=== PATIENT | male | born 1960 | race Caucasian/White ===

== ENCOUNTER 2023-07-24 10:21 | Inpatient (IN) | payer MEDICARE, OTHER ==
[2023-07-24] VITALS (10 sets, daily range): BP systolic 149–172; BP diastolic 93–124
[~2023-07-24] VITALS: Ht 185.4 cm; Wt 68.7 kg
[2023-07-24 10:44] LABS: BASOPHILS ABSOLUTE AUTO 0.05 K/mm3 (0.00-0.23); BASOPHILS PERCENT AUTO 1 % (0-2); EOSINOPHILS ABSOLUTE AUTO 0.09 K/mm3 (0.00-0.68); EOSINOPHILS PERCENT AUTO 3 % (0-6); Hematocrit 36.4 % (37.0-53.0); Hemoglobin 12.2 g/dL (13.5-17.5); IMMATURE GRAN ABSOLUTE AUTO 0.01 K/mm3 (0.00-0.10); IMMATURE GRAN PERCENT AUTO 0 % (0-1); LYMPHOCYTES ABSOLUTE AUTO 0.54 K/mm3 (0.84-5.20); LYMPHOCYTES PERCENT AUTO 15 % (21-46); MONOCYTES ABSOLUTE AUTO 0.55 K/mm3 (0.16-1.47); MONOCYTES PERCENT AUTO 16 % (4-13); Mean Corpuscular HGB 33.2 pg (26.0-34.0); Mean Corpuscular HGB Conc 33.5 g/dL (31.5-36.5); Mean Corpuscular Volume 99 fL (80-100); Mean Platelet Volume 9.6 fL (9.1-12.4); NEUTROPHILS ABSOLUTE AUTO 2.26 K/mm3 (1.96-9.15); NEUTROPHILS PERCENT AUTO 65 % (41-73); Platelet Count 108 K/mm3 (150-400); RDW Coefficient Variation 14.5 % (11.7-14.2); Red Blood Cell Count 3.67 M/mm3 (4.30-5.90)
[2023-07-24 11:07] LABS: Bilirubin, Total 0.7 mg/dL (0.1-1.0); Bun/Creatinine Ratio 17.4 (12.0-20.0); Calcium, Blood 8.9 mg/dL (8.5-10.1); Creatinine, Blood 0.63 mg/dL (0.60-1.20); Potassium, Blood 3.9 mmol/L (3.5-5.5)
--- NOTE | 2023-07-24 16:30 | NUR ---
INITIAL ASSESSMENT PATIENT ARRIVED TO UNIT AT 1608. PATIENT SLEEPING SOUNDLY. PATIENT AROUSES BRIEFLY TO NURSING CARE OR NOXIOUS STIMULI; PATIENT SLURS WORDS THAT ARE INCOMPREHENSIBLE AND THEN GOES RIGHT BACK TO SLEEP. CIWA SCORE 13. PATIENT GIVEN TOTAL OF 8 MG IV ATIVAN IN HERE. PATIENT AFEBRILE. NO SIGNS OF PAIN NOTED. PATIENT REMAINS SATTING 90% AND GREATER ON RA. LUNGS CLEAR T/O. PATIENT IN SB, HR 40S TO 50S. SBP 160S TO 170S. PATIENT NPO. APPEARS WNL THUS FAR. SCATTERED BRUISES NOTED T/O SKIN. SKIN TEAR NOTED TO R FA. SKIN DARK AND PEELING TO SOLE OF BILAT FEET; IT LOOKS IF PATIENT WALKED ON HOT SURFACE AND IT IS HEALING. NS INFUSING AT 100 MLS/ HOUR. BED ALARM ON. BED LOW AND CALL LIGHT IN REACH.
--- NOTE | 2023-07-24 19:39 | NUR ---
UPDATE NOTIFIED HOSPITALIST ABOUT PT'S ELEVATED BP W/ SYSTOLICS >170'S/DIASTOLIC >100-110'S. ORDERS FOR HYDRALAZINE 10MG Q4P SYSTOLIC >180.
--- NOTE | 2023-07-24 20:15 | NUR ---
ASSUMED CARE PT IS SOMNULENT; AROUSES TO VERBAL STIMULI; AND IS ORIENTED TO PLACE AND SELF. PT UNDERSTANDS HE'S IN THE HOSPITAL FOR ETOH WITHDRAWAL. MEDICATING WITHDRAWAL SYMPTOMS W/ ATIVAN PER ORDER/CIWA. PT ATTEMPTS TO GET OOB INTERMITTENTLY TO FIND HIS DOG OR TO GO "WALK AROUND"; REORIENTS AFTER EDUCATING PT ON IMPORTANCE OF STAYING IN BED.
[2023-07-25] VITALS (36 sets, daily range): BP systolic 85–162; BP diastolic 62–112
[2023-07-25 03:37] LABS: Hematocrit 40.8 % (37.0-53.0); Hemoglobin 13.6 g/dL (13.5-17.5); Mean Corpuscular HGB 32.5 pg (26.0-34.0); Mean Corpuscular HGB Conc 33.3 g/dL (31.5-36.5); Mean Corpuscular Volume 98 fL (80-100); Mean Platelet Volume 10.1 fL (9.1-12.4); Platelet Count 106 K/mm3 (150-400); RDW Standard Deviation 50.3 fL (35.1-46.3); Red Blood Cell Count 4.18 M/mm3 (4.30-5.90); White Blood Cell Count 4.19 K/mm3 (4.00-11.30)
[2023-07-25 03:58] LABS: Albumin, Blood 3.1 g/dL (3.4-5.0); Albumin/Globulin Ratio 0.9 (0.8-1.8); Bilirubin, Total 0.9 mg/dL (0.1-1.0); Bun/Creatinine Ratio 11.5 (12.0-20.0); Calcium, Blood 8.6 mg/dL (8.5-10.1); Creatinine, Blood 0.52 mg/dL (0.60-1.20); Globulin, Blood 3.3 g/dL (2.2-4.0); Total Protein, Blood 6.4 g/dL (6.4-8.2)
--- NOTE | 2023-07-25 05:34 | NUR ---
SHIFT SUMMARY PT RESTING QUIETLY. VSS. PT'S BLOOD PRESSURE REMAINS ELEVATED; CONTINUES TO REMAIN UNDER PARAMETERS SET BY HOSPITALIST FOR PRN BP MEDICATION. CIWA <8 AT TIME OF THIS NOTE. NO ACUTE EVENTS OVERNIGHT.
--- NOTE | 2023-07-25 10:47 | NUR ---
ASSUMED CARE REPORT FROM PRIYA LEON AT 0700. PT SLEEPING IN BED FOR MOST OF MORNING. WAKES c VERBAL STIMULI. SLURRED SOFT SPEECH. ORIENTED TO SELF, TOWN AND KNOWS HE IS TREATMENT FOR ETOH. FOLLOWS SIMPLE COMMANDS. CIWA 12, MEDICATED c LIBRIUM. LUNGS CLEAR. SR, RATE 80'S. BP STABLE. WILL CONTINUE TO MONITOR.
--- NOTE | 2023-07-25 17:01 | NUR ---
SHIFT SUMMARY NO ACUTE CHANGES THIS SHIFT. CIWA 9-15. PT TREMOROUS, ORIENTED TO SELF, TOWN AND CIRCUMSTANCE, FOLLOWS DIRECTIONS, OCCASIONAL HALLUCINATIONS. MEDICATED c LIBRIUM ORDERED c IMPROVEMENT. PT UP TO CHAIR FOR HALF OF SHIFT. ASSISTED c MECH SOFT MEALS, TOLERATED WELL. TWO PERSON ASSIST TO CHAIR. INCONTINENT OF URINE, ATTENDS IN PLACE. WILL CONTINUE TO MONITOR UNTIL REPORT TO ONCOMING NURSE.
[2023-07-26] VITALS (24 sets, daily range): BP systolic 99–153; BP diastolic 77–134
[2023-07-26 04:11] LABS: Albumin, Blood 3.3 g/dL (3.4-5.0); Albumin/Globulin Ratio 0.9 (0.8-1.8); Bun/Creatinine Ratio 17.5 (12.0-20.0); Calcium, Blood 9.1 mg/dL (8.5-10.1); Creatinine, Blood 0.57 mg/dL (0.60-1.20); Globulin, Blood 3.5 g/dL (2.2-4.0); Potassium, Blood 4.2 mmol/L (3.5-5.5); Total Protein, Blood 6.8 g/dL (6.4-8.2)
[2023-07-26 04:12] LABS: BASOPHILS ABSOLUTE AUTO 0.04 K/mm3 (0.00-0.23); BASOPHILS PERCENT AUTO 1 % (0-2); EOSINOPHILS ABSOLUTE AUTO 0.04 K/mm3 (0.00-0.68); EOSINOPHILS PERCENT AUTO 1 % (0-6); Hematocrit 40.7 % (37.0-53.0); Hemoglobin 13.9 g/dL (13.5-17.5); IMMATURE GRAN ABSOLUTE AUTO 0.02 K/mm3 (0.00-0.10); IMMATURE GRAN PERCENT AUTO 0 % (0-1); LYMPHOCYTES ABSOLUTE AUTO 0.56 K/mm3 (0.84-5.20); LYMPHOCYTES PERCENT AUTO 9 % (21-46); MONOCYTES ABSOLUTE AUTO 0.97 K/mm3 (0.16-1.47); MONOCYTES PERCENT AUTO 16 % (4-13); Mean Corpuscular HGB 32.4 pg (26.0-34.0); Mean Corpuscular HGB Conc 34.2 g/dL (31.5-36.5); Mean Corpuscular Volume 95 fL (80-100); Mean Platelet Volume 9.6 fL (9.1-12.4); NEUTROPHILS ABSOLUTE AUTO 4.41 K/mm3 (1.96-9.15); NEUTROPHILS PERCENT AUTO 73 % (41-73); Platelet Count 135 K/mm3 (150-400); RDW Coefficient Variation 13.7 % (11.7-14.2); RDW Standard Deviation 47.7 fL (35.1-46.3); Red Blood Cell Count 4.29 M/mm3 (4.30-5.90); White Blood Cell Count 6.04 K/mm3 (4.00-11.30)
--- NOTE | 2023-07-26 06:11 | NUR ---
END OF SHIFT SUMMARY PT A/O X2 WITH SOME CONFUSION THROUGHOUT THE NIGHT WHEN AWAKE. ALL VITALS STABLE THIS SHIFT. CIWA'S DOCUMENTED AND TREATED PER EMAR DIRECTIONS. NO BM THIS SHIFT. PLEASE SEE FULL ASSESSMENT FOR MORE IN DEPTH INFORMATION IF NEEDED. WILL CONTINUE TO MONITOR UNTIL REPORT GIVEN TO DAY RN.
--- NOTE | 2023-07-26 17:42 | NUR ---
SHIFT SUMMARY NO ACUTE CHANGES THIS SHIFT. PT REMAINS DROWSEY AND RESTING QUIETLY MOST OF THIS SHIFT. WHEN AWAKE PT CONTINUES WITH CONFUSED AND SLURRED SPEECH. PT WITH BOTH AUDITORY AND VISUAL HALLUCINATIONS AND TREMORS TO EXTREMITIES. PT ABLE TO TAKE SIPS OF WATER WITH MEDS. NS INFUSING AT 100 ML/HR. PT MED WITH ATIVAN AND LIBRIUM PER EMAR. PT WITH ATTENDS IN PLACE AND INCONTINENT VOIDS THIS SHIFT. NO FAMILY AT BEDSIDE. VITAL SIGNS STABLE. PT ON ROOM AIR. WILL CONTINUE TO MONITOR AND REPORT OFF TO ONCOMING RN.
--- NOTE | 2023-07-26 19:24 | NUR ---
ASSUMED CARE OF PT AT 1900 PT SLEEPING DURING BEDSIDE SHIFT REPORT. VITALS WNL AT THIS TIME. NS @ 100 MLS/HR. SEE FULL ASSESSMENT FOR FURTHER INFORMATION.
[2023-07-27] VITALS (11 sets, daily range): BP systolic 138–169; BP diastolic 83–122
[2023-07-27 03:32] LABS: BASOPHILS ABSOLUTE AUTO 0.03 K/mm3 (0.00-0.23); BASOPHILS PERCENT AUTO 1 % (0-2); EOSINOPHILS ABSOLUTE AUTO 0.03 K/mm3 (0.00-0.68); EOSINOPHILS PERCENT AUTO 1 % (0-6); Hematocrit 39.1 % (37.0-53.0); Hemoglobin 13.7 g/dL (13.5-17.5); IMMATURE GRAN ABSOLUTE AUTO 0.01 K/mm3 (0.00-0.10); IMMATURE GRAN PERCENT AUTO 0 % (0-1); LYMPHOCYTES ABSOLUTE AUTO 0.72 K/mm3 (0.84-5.20); LYMPHOCYTES PERCENT AUTO 13 % (21-46); MONOCYTES ABSOLUTE AUTO 1.22 K/mm3 (0.16-1.47); MONOCYTES PERCENT AUTO 22 % (4-13); Mean Corpuscular Volume 94 fL (80-100); Mean Platelet Volume 9.8 fL (9.1-12.4); NEUTROPHILS ABSOLUTE AUTO 3.64 K/mm3 (1.96-9.15); NEUTROPHILS PERCENT AUTO 65 % (41-73); Platelet Count 139 K/mm3 (150-400); RDW Coefficient Variation 13.5 % (11.7-14.2); RDW Standard Deviation 46.6 fL (35.1-46.3); Red Blood Cell Count 4.15 M/mm3 (4.30-5.90); White Blood Cell Count 5.65 K/mm3 (4.00-11.30)
[2023-07-27 03:49] LABS: Albumin, Blood 2.8 g/dL (3.4-5.0); Albumin/Globulin Ratio 0.8 (0.8-1.8); Bun/Creatinine Ratio 17.6 (12.0-20.0); Calcium, Blood 8.5 mg/dL (8.5-10.1); Creatinine, Blood 0.57 mg/dL (0.60-1.20); Globulin, Blood 3.4 g/dL (2.2-4.0); Potassium, Blood 3.8 mmol/L (3.5-5.5); Total Protein, Blood 6.2 g/dL (6.4-8.2)
--- NOTE | 2023-07-27 06:02 | NUR ---
END OF SHIFT SUMMARY PT DOES NOT WAKE EASILY. VERY CONFUSED AT TIMES. HEAVY SLURRING WHEN TALKING. FOLLOWS COMMANDS. SWALLOWS PILLS WHOLE WITHOUT DIFFICULTY. VITALS STABLE. NO URINE OF BM THIS SHIFT. WILL CONTINUE TO MONITOR UNTIL REPORT GIVEN TO DAY SHIFT RN.
--- NOTE | 2023-07-27 16:47 | NUR ---
SHIFT SUMMARY NO ACUTE CHANGES THIS SHIFT. PT IS MORE ALERT THIS AFTERNOON AND ABLE TO ANSWER QUESTIONS APPROPRIATELY. PT WITH PERIODS OF CONFUSION AND NEEDS REORIENTATION. PT IS PLEASANT AND FOLLOWS DIRECTIONS APPROPRIATELY. VITAL SIGNS HAVE REMAINED STABLE. PT ABLE TO EAT MEALS WITH ASSISTANCE. PT WITH ATTENDS IN PLACE, PT WITH INCONTINENT VOIDS THIS SHIFT. PHYSICAL THERAPY WORKED WITH PT THIS MORNING. PT UP TO RECLINER CHAIR THIS AFTERNOON WITH 2 PERSON ASSIST AND WALKER. PT ASKING ABOUT PHONE AND OTHER PERSONAL BELONGINGS. [facility] CALLED AND VERIFIED THAT PT BELONGINGS REMAIN AT [facility] AT THIS TIME. PT TO BE TRANSFERED TO [facility]. WILL REPORT OFF TO RN ASSUMING CARE.
--- NOTE | 2023-07-27 18:47 | NUR ---
SHIFT SUMMARY ASSUMED CARE OF PT AT 1730. PT HAD NO C/O OF PAIN OR SOB UPON ARRIVAL. PT ASSISTED WITH DINNER. PT VERY WEAK AND HAS VISABLE TREMORS WHILE AWAKE. PT PLEASANT AND A&OX3. MEPALEX DRESSING ON RIGHT FOREARM CHANGED. PT SLEEPING AFTER DINNER. EVEN AND UNLABORED RESPIRATIONS NOTED. BED IN LOWEST POSITION AND CALL LIGHT IN REACH.
[2023-07-28 00:08] VITALS: BP 159/101
[2023-07-28 04:43] VITALS: BP 156/91
[2023-07-28 04:51] LABS: BASOPHILS ABSOLUTE AUTO 0.04 K/mm3 (0.00-0.23); BASOPHILS PERCENT AUTO 1 % (0-2); EOSINOPHILS ABSOLUTE AUTO 0.14 K/mm3 (0.00-0.68); EOSINOPHILS PERCENT AUTO 3 % (0-6); Hematocrit 35.4 % (37.0-53.0); Hemoglobin 12.3 g/dL (13.5-17.5); IMMATURE GRAN ABSOLUTE AUTO 0.02 K/mm3 (0.00-0.10); IMMATURE GRAN PERCENT AUTO 0 % (0-1); LYMPHOCYTES ABSOLUTE AUTO 0.73 K/mm3 (0.84-5.20); LYMPHOCYTES PERCENT AUTO 15 % (21-46); MONOCYTES ABSOLUTE AUTO 1.09 K/mm3 (0.16-1.47); MONOCYTES PERCENT AUTO 23 % (4-13); Mean Corpuscular HGB 32.6 pg (26.0-34.0); Mean Corpuscular HGB Conc 34.7 g/dL (31.5-36.5); Mean Corpuscular Volume 94 fL (80-100); Mean Platelet Volume 9.1 fL (9.1-12.4); NEUTROPHILS PERCENT AUTO 58 % (41-73); Platelet Count 154 K/mm3 (150-400); RDW Coefficient Variation 13.2 % (11.7-14.2); Red Blood Cell Count 3.77 M/mm3 (4.30-5.90); White Blood Cell Count 4.82 K/mm3 (4.00-11.30)
--- NOTE | 2023-07-28 05:02 | NUR ---
MARCIAL IS SOMULENT AND CONFUSED, HE RESPONDS TO VERBAL STIMULUS AND CAN ANSWER SOME QUESTIONS COHERENTLY, ORIENTED TO SELF, AND PLACE. HE CONTINUES TO SCORE 8-10 ON CIWA AND IS HAS BEEN MEDICATED PER EMAR WITH LIBRIUM AND ATIVAN. THE PATIENT IS INCONTINENT, AND WILL TRY TO AMBULATE IF WET. HE HAD A FALL DURING THE SHIFT AROUND 2300. WHILE ATTEMTING TO AMBULATE THE PATIENT SLID OUT OF THE BED TO THE GROUND WITHOUT INJURY, THE DOCTOR WAS NOTIFIED, HE WAS REASSESSED AND GIVEN ATIVAN, FALL PRECAUTIONS ARE IN PLACE, BED ALARM IS TURNED ON, AND THE BED IS IN ITS LOWEST POSTION. WILL CONTINUE TO MONITOR FOR SIGNS OF AGITATION. MARCIAL IS COOPERATIVE WITH CARE.
[2023-07-28 05:15] LABS: Albumin, Blood 2.5 g/dL (3.4-5.0); Albumin/Globulin Ratio 0.8 (0.8-1.8); Bilirubin, Total 0.7 mg/dL (0.1-1.0); Bun/Creatinine Ratio 16.6 (12.0-20.0); Calcium, Blood 8.5 mg/dL (8.5-10.1); Creatinine, Blood 0.48 mg/dL (0.60-1.20); Globulin, Blood 3.1 g/dL (2.2-4.0); Potassium, Blood 3.6 mmol/L (3.5-5.5); Total Protein, Blood 5.6 g/dL (6.4-8.2)
--- NOTE | 2023-07-28 05:19 | NUR ---
THIS TECHNICAL INSTRUCTOR COURSE DEVELOPER HAS REVEIWED AND AGREES WITH ALL NOTES AND ASSESSMENTS BY EDWARD FREEDMAN.
[2023-07-28 08:21] VITALS: BP 154/96
[2023-07-28 15:24] VITALS: BP 176/105
[2023-07-28 16:11] VITALS: BP 156/97
--- NOTE | 2023-07-28 18:12 | NUR ---
SHIFT SUMMARY PT A&OX3 AND COOPERATIVE OF CARE. PT HAD PLEASANT EFFECT T/O DAY. MILD TREMORS STILL PRESENT. PT UP TO BSC IN MORNING WITH 2 ASSIST BUT PT WAS VERY WEAK AND STRUGGLED WITH MOVING LEGS. PT SLEPT T/O MOST OF DAY. IN AFTERNOON PT APPEARED MORE RESTLESS AND VERBALIZED FEELING ANXIOUS MEDICATED PER EMAR WITH GOOD EFFECT. BP ELEVATED IN AFTERNOON. DR NOTIFIED, LIBRIUM ADMINISTERED AND BP CAME DOWN WHEN RECHECKED. BED IN LOWEST POSITION AND CALL LIGHT IN REACH. BED ALARM ON.
[2023-07-28 19:22] VITALS: BP 153/92
[2023-07-29 02:57] VITALS: BP 162/105
--- NOTE | 2023-07-29 04:33 | NUR ---
MARCIAL HAS IMPROVED ALERTNESS AND MENTATION FROM PREVIOUS NIGHT, HE IS ABLE TO SPEAK IN MORE COMPLETE SENTENCES, USES HIS CALL LIGHT MORE APPROPRIATELY AND HAS LESS CONFUSION AND AGITATION. HE IS CALM AND COOPERATIVE WITH CARE, ALERT AND ORIENTED TO SELF, AND PLACE. PATIENT CONTINUES TO HAVE MILD TREMORS, AND INTERMITTENT CONFUSION, HE HAS CONCERNS REGARDING HIS BELONGINGS AND HIS DOG. LIBRIUM ADMINISTERED IN RESPONSE TO MILD INCREASE IN TREMORS AND CONFUSION DURING THE NIGHT. HE IS CURRENTLY RESTING WITH BED IN LOWEST POSITION, BED ALARM SET, AND CALL LIGHT IN REACH.
[2023-07-29 05:08] LABS: Hematocrit 35.9 % (37.0-53.0); Hemoglobin 12.5 g/dL (13.5-17.5)
--- NOTE | 2023-07-29 05:16 | NUR ---
THIS SANDER AND POLISHER HAS REVIEWED AND AGREES WITH ALL NOTES AND ASSESSEMENTS BY EDWARD FREEDMAN.
[2023-07-29 07:46] VITALS: BP 168/97
[2023-07-29 15:49] VITALS: BP 157/105
--- NOTE | 2023-07-29 17:43 | NUR ---
SHIFT SUMMARY: PT ORIENTED TO SELF AND LOCATION. PT PLEASANT AND COOPERATIVE WITH CARE. PT CONFUSED THIS SHIFT HAVING VISUAL AND AUDITORY HALLUCINATIONS WELL TREMORS, HEADACHES, AND SWEATS. CIWA PERFORMED TWICE FIRST SCORE OF 11 AND SECOND SCORE OF 16. 25 LIBRIUM GIVEN THIS AM AND 50 THIS AFTERNOON. 2MG ATIVAN GIVEN IV THIS AFTERNOON. ATTEMPTED 2P ASSIST TO BSC. PT EXTREMELY WEAK. PT INCONTINENT WITH OCCASIONAL URINAL USE. IV INFUSING NS @ 100/HR. PT ANXIOUS DUE TO NEED FOR BELONGINGS AT [facility]. PHYSICAL THERAPY WORKED WITH PT BUT REMAINS VERY WEAK. PT MOVING TO MEDICAL ROOM 347 AFTER BEING CLEANED. ORDER FOR OT EVAL IN PLACE. BED ALARM ON. BED IN LOWEST POSITION. CALL LIGHT IN REACH. WILL CONTINUE TO MONITOR.
[2023-07-29 19:11] VITALS: BP 150/102
--- NOTE | 2023-07-30 04:00 | NUR ---
SHIFT SUMMARY. SHIFT HAS BEEN MOSTLY UNREMARKABLE. PT AOX3, PLEASANT, COOPERATIVE WITH ARE. MILDLY ANXIOUS BUT RECEPTIVE TO REDIRECTION. BEDREST THUS FAR THIS SHIFT. FLUIDS RUNNING THROUGHOUT SHIFT. NO COMPLAINTS OF PAIN OUTSIDE OF VERY MILD HEADACHE. CIWAs COMPLETED PER PROTOCOL, PT REMAINS STABLE. WITHDRAWAL MEDICATIONS ADMINISTERED NEEDED. INCONTINENT, 1 PERSON BED CHANGE. CAMERA IN PLACE FOR REMOTE MONITORING PT CAN BE IMPULSIVE AT TIMES. HAS SLEPT COMFORTABLY THROUGH MOST OF SHIFT. HAS NOT USED CALL LIGHT THUS FAR DESPITE EDUCATION ON ITS USE. BED LOCKED IN LOWEST POSITION. CALL LIGHT LEFT WITHIN REACH.
[2023-07-30 04:50] VITALS: BP 145/96
[2023-07-30 05:30] LABS: Hematocrit 37.9 % (37.0-53.0); Hemoglobin 13.4 g/dL (13.5-17.5)
[2023-07-30 05:57] LABS: Albumin, Blood 2.8 g/dL (3.4-5.0); Albumin/Globulin Ratio 0.8 (0.8-1.8); Bilirubin, Total 0.6 mg/dL (0.1-1.0); Bun/Creatinine Ratio 6.2 (12.0-20.0); Calcium, Blood 8.8 mg/dL (8.5-10.1); Creatinine, Blood 0.48 mg/dL (0.60-1.20); Globulin, Blood 3.6 g/dL (2.2-4.0); Potassium, Blood 3.6 mmol/L (3.5-5.5); Total Protein, Blood 6.4 g/dL (6.4-8.2)
[2023-07-30 07:33] VITALS: BP 138/91
--- NOTE | 2023-07-30 16:54 | NUR ---
SHIFT SUMMARY; PATIENT NOTED TO HAVE RIGHT FACIAL DROOP THIS AM. SHOWS LEFT ARM WEAKNESS AND HAS TROUBLE LOOKING TO THE LEFT WITH HIS LEFT EYE. SPEECH EVAL DONE BY MELISSA THERAPIST AND PATIENT IS CHANGED TO SWALLOW PRECAUTIONS AND PILLS IN APPLESAUCE. PATIENT HAD BED BATH TODAY AND THIS RN DID CHECK FOR ANY SKIN ISSUES. ONLY AREA OF CONCERN WAS RENU AREA WHICH APPEARED RED AND ANGRY. HE HAD BRUISES TO HIS RIGHT SIDE AND THEY APPEARED TO BE IN VARIOUS STAGES OF HEALING. PATIENT ANSWERS QUESTIONS ABOUT HOME LIFE AND HIS HISTORY. 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 HE SAYS HE IS CURRENTLY HOMELESS AND ONLY BELONGINGS HE HAS ARE AT [facility] IN BAGS. HE APPEARS VERY CONCERNED ABOUT THOSE ITEMS. HE DOES NOT USE THE CALL LIGHT TO CALL FOR ASSIST IN USING URINAL AND IS A FEEDER FOR ALL MEALS. CASE MANAGMENT IS WORKING WITH PATIENT ON POSSIBLE SNF PLACEMENT.
[2023-07-30 20:48] VITALS: BP 135/84
[2023-07-31 02:33] VITALS: BP 136/93
--- NOTE | 2023-07-31 04:27 | NUR ---
SHIFT SUMMARY. SHIFT HAS BEEN LARGELY UNREMARKABLE. PT IS AOX3-4, FORGETFUL TO DATE BUT EASILY AND QUICKLY REORIENTED. PLEASANT AND COOPERATIVE WITH CARE. SOMNOLENT THROUGHOUT SHIFT BUT EASILY AROUSABLE. CONDOM CATH IN PLACE THROUGHOUT SHIFT WHICH IS FUNCTIONING WELL. FLUIDS INFUSING CONTINUOUSLY. NO COMPLAINTS OF PAIN THIS SHIFT. REMOTE MONITORING CAMERA REMAINS IN PLACE WITH NO ALARMS THIS SHIFT, PT HAS NOT BEEN IMPULSIVE. CIWAs COMPLETED PER PROTOCOL. BED LOCKED IN LOWEST POSITION. CALL LIGHT LEFT WITHIN REACH.
[2023-07-31 07:51] VITALS: BP 136/96
[2023-07-31 15:33] VITALS: BP 102/74
--- NOTE | 2023-07-31 17:06 | NUR ---
SHIFT SUMMARY PATIENT UP TO CHAIR MULTIPLE TIMES TODAY. PATIENT INTERACTIVE BUT CONFUSED. NEEDING 2 PERSON, WALKER AND GAIT BELT FOR TRANSFERS. PATIENT FIXATED ON WANTING HIS BELONGINGS OVER AT [facility]. [facility] CONTACTED AND PATIENT ABLE TO HEAR THAT HIS BELONGINGS ARE SECURE AT [facility]. PATIENT ABLE TO EAT IF ASSISTED. COUGHING NOTED WHEN PATIENT LAYS DOWN. PATIENT HAS L SIDED WEAKNESS THAT WAS PRESENT PRIOR TO ADMISSION BUT NOT SEVERE. PATIENT STATES HE WAS ABLE TO WALK WITH A WALKER PRIOR TO ADMISSION.
[2023-07-31 20:21] VITALS: BP 140/87
[2023-08-01 05:44] VITALS: BP 163/88
[2023-08-01 07:55] VITALS: BP 134/87
[2023-08-01 14:32] LABS: SARS-Cov-2 (COVID-19) PCR, MMC NEGATIVE (NEGATIVE)
[2023-08-01 14:56] VITALS: BP 121/87
--- NOTE | 2023-08-01 18:31 | NUR ---
SHIFT SUMMARY PATIENT CONTINUES TO BE CONFUSED AND NEEDING TO BE REORIENTED FREQUENTLY. PATIENT ATTEMPTING TO GET OUT OF BED OR CHAIR FREQUENTLY. SAFETY MEASURES IN PLACE TO NOTIFY STAFF. PATIENT CONTINUES TO BE VERY WEAK, PATIENT WORKING WITH THERAPY. PATIENT NEEDING ASSISTANCE WITH FEEDING. PATIENT FIXATED ON PLAN AND HIS BELONGINGS. IV CHANGED BECAUSE PREVIOUS IV LEAKING
[2023-08-01 20:08] VITALS: BP 108/69
--- NOTE | 2023-08-02 07:12 | NUR ---
OVERALL, MARCIAL WAS QUIET, FORGETFUL, BUT EASILY REORIENTED. PE IS STILL VERY WEAK, AND DOES NOT APPEAR TO REMEMBER TO CALL FOR ASSISTANCE TO GET OUT OF CHAIR, BED OR TOILET. HE NEEDS BRIEF, CONCISE DIRECTIONS AND A ONE TO TWO ASSIST WITH GAIT BELT AND FWW. THIS MORNING, HE WOKE AND WAS "TALKING" TO SOMEONE ABOUT HIS HAVING TO GO TO [facility] IN THE MORNING. HE COULD NOT BE CONSOLED FOR APPROXIMATELY 15 MINUTES. AND THEN WAS STILL SHAKEN. 25MG LIBRIUM GIVEN FOR THE ANXIETY AND HALLUCINATIONS
[2023-08-02 07:28] VITALS: BP 135/81
[2023-08-02 15:26] VITALS: BP 139/87
--- NOTE | 2023-08-02 17:09 | NUR ---
SHIFT SUMMARY PATIENT CONTINUES TO BE RESTLESS AT TIMES. PATIENT CONFUSED AND EASILY ANXIOUS. PATIENT REDIRECTABLE AND COOPERATIVE WITH CARE. PATIENT TEARFUL AT TIMES AND WORRIES ABOUT HIS BELONGINGS. PATIENT SLOW TO RESPOND TO QUESTIONS AND PERIODICALLY HAVING DIFFICULTY FINDING THE RIGHT WORD. PATIENT CONTINUES TO HAVE WEAKNESS L>R. PATIENT CONTINUES TO NEED ASSISTANCE WITH WALKER, GAIT BELT, AND 2 PERSON ASSIST FOR TRANSFERS AND AMBULATION.
[2023-08-02 20:01] VITALS: BP 158/86
[2023-08-03 04:58] VITALS: BP 142/82
--- NOTE | 2023-08-03 06:08 | NUR ---
MARCIAL HAD VERY LITTLE SLEEP LAST NIGHT. HE WAS AWAKE SEVERAL TIMES ATTEMPTING TO GET OOB FOR REASONS HE COULD NOT EXPLAIN. THREE VERY LARGE INCONTINENT VOIDS OVERNIGHT. NO OTHER CHANGES NOTED. VERY FLAT AFFECT, SLOW SPEECH
[2023-08-03 07:14] VITALS: BP 129/85
--- NOTE | 2023-08-03 08:00 | NUR ---
pt attempting to get oob, states he's worried they are gonna kick him out, reassured him hes safe, and not going to be kicked out, a/o to self, knows he's in hosp, is flat, follows commands, lungs are clear, dim in bases, on r/a, has an occ cough, hrr, no edema noted, ppp faint, cap refill <3sec, vs stable, afebrile, piv is clear and patent, infusing ns as ordered, btx4, abd flat soft nontender, incont of urine, briefs in place, skin c/w/d, maew, stiff, weak, two person assist, christie, call light in reach.
[2023-08-03 15:24] VITALS: BP 116/75
--- NOTE | 2023-08-03 18:12 | NUR ---
pt has attempted to get oob on his own several times, is redirectable, incont, no acute changes this shift. call light in reach.
[2023-08-03 19:47] VITALS: BP 137/97
[2023-08-04 07:55] VITALS: BP 135/89
[2023-08-04 12:56] VITALS: BP 128/80
[2023-08-04 15:24] VITALS: BP 143/88
--- NOTE | 2023-08-04 18:08 | NUR ---
PT PLEASANT TODAY. CONTIUES TO SQUIRM IN BED. IF / WHEN WETS SELF WILL PULL ATTENDS OFF. BUT HE DOES NOT NOTIFY ANYONE. DID CALL ONCE WHEN NEEDED TO UE URINAL. IS CONFUSED, BUT REORIENTS EASILY. ALERT TO SELF, , AGE, FROM [place]. NO OTER NEW CONCERNS NOTED.
[2023-08-04 20:15] VITALS: BP 144/97
[2023-08-05 04:10] VITALS: BP 159/95
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
[2023-08-05 07:20] VITALS: BP 141/88
--- NOTE | 2023-08-05 13:36 | NUR ---
Spiritual care visit conducted. Patient is lying in bed and alert. He immediately tells me that he wants the phone number for his couselor at [facility]. His RN comes in at this time and he asks her and she tells him that she will work on finding the information for him. After this the patient is fixated on this number and can not seem to focus on anything else. He will give me a couple of minutes at a time of focused attention and then he is back to being frustrated that he does not have this information when he wants it. I explain about the other patients and their needs. We talk briefly about his desire to and that he can't go on living without his who left him a couple of weeks ago. He admits to being an alcoholic and but that she left because he would not release any money to her. He does not allow for further discussion on the weightier issues of his SI or his hopelessness. Patient increases his level of intensity over his frustration about the phone number to the point that I must allow him his space to work it out. The conversation ceased to be meaningful but patient states that he would like me to come back again. I state that I will continue to remain available to him and his family.
--- NOTE | 2023-08-05 16:31 | NUR ---
SHIFT SUMMARY Pt remains alert to self this shift. Generalized weakness noted with PT eval. Speech garbled at times. 1:1 feed mech soft diet. Incont of urine, did void per urinal this shift. Spoke with Sujatha who states [facility] will bring pt belongings tomorrow. Contact at [employer] is Dion [phone].
[2023-08-05 16:39] VITALS: BP 121/83
[2023-08-05 19:44] VITALS: BP 129/85
[2023-08-06 03:35] VITALS: BP 97/68
--- NOTE | 2023-08-06 03:40 | NUR ---
SHIFT SUMMARY. TOOK OVER CARE OF PATIENT HALF WAY THROUGH SHIFT. REMAINDER OF SHIFT HAS BEEN UNREMARKABLE. PT HAS SLEPT THROUGH MUCH OF SHIFT THUS FAR. CAMERA REMAINS IN PLACE FOR REMOTE MONITORING. INCONTINENT. PLEASANT, COOPERATIVE WITH CARE. REMAINS SOMEWHAT ANXIOUS ABOUT HIS BELONGINGS AT [facility] WHICH SHOULD BE ARRIVING TODAY PER REPORT. HAS NOT USED CALL LIGHT THUS FAR BUT IS ABLE TO MAKE NEEDS KNOWN. BED LOCKED IN LOWEST POSITION. CALL LIGHT LEFT WITHIN REACH.
[2023-08-06 09:45] VITALS: BP 84/58
--- NOTE | 2023-08-06 09:48 | NUR ---
PT BP 84/58 HR 83 O2 SAT 97% RA. PT ASYMPTOMATIC. DR MIXON PAGED STATING WILL DC MINIPRESS AND GIVE 500ML BOLUS. DR TORRES WILL ENTER ORDERS.
[2023-08-06 11:27] VITALS: BP 94/69
[2023-08-06 15:24] VITALS: BP 115/79
--- NOTE | 2023-08-06 17:15 | NUR ---
SHIFT SUMMARY: Pt remains alert to self. Denies pain. 500ml bolus provided for low bp. Incontinent of B&B. Attempted to ast pt to bsc for bm, however pt unable to put one foot in front of the other to walk. PT ast with returning to bed. Pt belongings brought from [facility] today. Black bag labeled. Phone, wallet with pt per his request.
[2023-08-06 19:18] VITALS: BP 130/82
--- NOTE | 2023-08-07 03:21 | NUR ---
SHIFT SUMMARY. SHIFT HAS BEEN MOSTLY UNREMARKABLE. PT AOX1-2, PLEASANT, COOPERATIVE WITH CARE. EVIDENCE OF SOME HALLUCINATIONS THROUGHOUT MORNING PT HAS REPORTED HEARING SOMEONE WITH AN MACANESE ACCENT IN HIS ROOM, ALTHOUGH THIS COULD BE THE REMOTE MONITORING CAMERA VOICE HE IS REFERRING TO. PT UNABLE TO CLARIFY DETAILS ADEQUATELY TO KNOW FOR SURE. REMAINS INCONTINENT. REMOTE MONITORING CAMERA IN PLACE FOR SAFETY. NO REPORTED PAIN THIS SHIFT. TOOK 2100 PILLS WELL WHOLE IN APPLESAUCE. HAS SLEPT THROUGH MOST OF SHIFT. REMAINS SOMEWHAT ANXIOUS ABOUT LOCATION OF BELONGINGS DESPITE THEM ALL BEING AT BEDSIDE BUT IS EASILY REDIRECTED. BED LOCKED IN LOWEST POSITION. CALL LIGHT LEFT WITHIN REACH.
[2023-08-07 04:31] VITALS: BP 132/88
[2023-08-07 07:12] VITALS: BP 124/83
[2023-08-07 16:12] VITALS: BP 122/82
--- NOTE | 2023-08-07 16:53 | NUR ---
SHIFT SUMMARY PT IS ALERT AND ORIENTED X2-3. HE IS MORE CONFUSED AND ANXIOUS AFTER WAKING UP BUT SLOWLY BECOMES MORE ORIENTED AND CALM. REQUIRES REASSURANCE WHEN FEELING ANXIETY OVER MISSED PLACED ITEMS. I ORGANIZED THE ITEMS IN HIS PERSONAL BAG, PLACING CLOTHES IN THE DRESSER AND IMPORTANT PAPER/WALLET/ITEMS IN THE LOCKED CLOSET. THIS SEEMED TO CALM HIM. 2 PERSON ASSIST WITH FWW AND GAIT BELT TO THE BEDSIDE COMMODE AND CHAIR. PT WAS UNABLE TO STAND UP STRAIGHT, VERY WEAK, WITH POOR COORDINATION IN ALL EXTREMETIES. I DO NOT FEEL SAFE GETTING HIM UP WITH PHYSICAL THERAPY OR A LIFT. HE SAT IN CHAIR FOR ENTIRE MORNING. CURRENTLY SITTING UP IN BED. NO ACUTE CHANGES.
[2023-08-07 19:26] VITALS: BP 114/79
--- NOTE | 2023-08-08 03:30 | NUR ---
SHIFT SUMMARY. SHIFT HAS BEEN MOSTLY UNREMARKABLE. PT AOX2, PLEASANT, COOPERATIVE WITH CARE. REMAINS SOMEWHAT ANXIOUS BUT IS TYPICALLY EASILY REASSURED AND REDIRECTED. PT HAS ACTUALLY BEEN CONTINENT THUS FAR THIS SHIFT AND HAS USED CALL LIGHT SPORADICALLY TO REQUEST ASSISTANCE USING URINAL. CAMERA REMAINS IN PLACE FOR REMOTE MONITORING. NO PAIN REPORTED THIS SHIFT. PT HAS SLEPT THROUGH MOST OF SHIFT AFTER 2100 MED PASS AND SHIFT ASSESSMENT. BED LOCKED IN LOWEST POSITION. CALL LIGHT LEFT WITHIN REACH.
[2023-08-08 04:46] VITALS: BP 102/74
[2023-08-08 07:30] VITALS: BP 107/72
--- NOTE | 2023-08-08 15:27 | NUR ---
Spiritual care visit conducted. Patient is more pleasant today than my last visit. This visit, however, he is fixated on getting his clothes and on getting back in bed. Between these requests he admits to still having an on going struggle to get his back, having a horrible alcohol addiction and not always being the easiest to live with. After he shares little bits of his pain he quickly reverts back to the focus of the clothes and getting out of the chair. I reinforce helpful attitudes and provide a calming presence and gentle certified rehabilitation counselor. Patient responded well and showed signs of an elevated mood.
[2023-08-08 17:02] VITALS: BP 108/78
--- NOTE | 2023-08-08 18:28 | NUR ---
SHIFT SUMMARY PT IS ALERT AND ORIENTED X3-4. CONFUSED AT TIMES. MUCH MORE ORIENTED TODAY THAN YESTERDAYS SHIFT. 2 PERSON ASSIST TO BEDSIDE COMMODE. PT HAS TREMORS THAT EFFECT COORDINATION BUT WHEN FOCUSING ON TASK HAS BETTER COORDINATION. NO ACUTE CHANGES. OVER ALL HE STATES THAT HE FEELS LIKE HE IS IMPROVING
[2023-08-08 19:33] VITALS: BP 108/67
--- NOTE | 2023-08-09 02:27 | NUR ---
SHIFT SUMMERY, PT WAS SITTING IN RECLINER FOR DINNER THEN SAT THERE FOR A WHILE AND DRANK SOME TEA. PT PUT IN TO BED AND HAS SEEMED TO SLEEP MOST OF THE NIGHT. CALL LIGHT IN REACH BED ALARM ON.
[2023-08-09 03:04] VITALS: BP 99/68
[2023-08-09 07:22] VITALS: BP 90/61
[2023-08-09 16:15] VITALS: BP 100/64
--- NOTE | 2023-08-09 17:08 | NUR ---
SHIFT SUMMARY: MARCIAL IS A&OX2-3. VSS, NO ACUTE EVENTS THIS SHIFT. HE IS ABLE TO AMBULATE TO THE CHAIR AND BEDSIDE COMMODE WITH 1-2 PERSON ASSIST WITH GAIT BELT AND FWW. HE USES THE CALL LIGHT AT TIMES, BED AND CHAIR ALARM WELL REMOTE MONITOR IN PLACE. HE IS TOLERATING PO INTAKE WELL AND HAS USED THE URINAL AT TIMES TODAY. HE IS LYING IN BED WITH THE CALL LIGHT IN REACH. WCTM UNTIL REPORT IS GIVEN TO LARD TUB WASHER RN.
[2023-08-09 19:47] VITALS: BP 109/69
--- NOTE | 2023-08-10 01:40 | NUR ---
SHIFT SUMMERY, PT DOING BETTER TONIGHT . PT SEEMING MOR ALERT AND ORIENTED. PT SEEMING TO HAVE LESS TREMMORS THAN YESTERDAY. PT AMBULATED TO BR WITH 1 ASSIST AND WALKER, PT A LITTLE UNSTEADY ON FEET BUT WALKED FROM BED TO BR THEN BACK. PT MORE INTER ACTIVE, PT WANTING TO DO A CARD TRICK FOR STAFF, PT DIS HAVE A LITTLE DIFFICULTY WITH CARDS. PT RESTING IN BED, PT APPEARS TO BE COMFORTABLE. BED ALRM STORAGE AND BACKUP ADMINISTRATOR LIGHT IN REACH. CAMERA ON PT.
[2023-08-10 08:08] VITALS: BP 88/65
[2023-08-10 08:45] VITALS: BP 106/69
--- NOTE | 2023-08-10 13:41 | NUR ---
ASSUMED CARE OF PT. PT IN BED PLAYING WITH A DECK OF CARDS. AWAKE AND ALERT.
[2023-08-10 15:30] VITALS: BP 94/69
--- NOTE | 2023-08-10 18:35 | NUR ---
SHIFT SUMMARY PT REMAINED ALERT AND APPROPRIATE THIS AFTERNOON. REQUESTING VARIOUS ITEMS TO KEEP HIMSELF OCCUPIED. WILL REPORT CURRENT CONDITION TO ONCOMING SHIFT.
[2023-08-10 19:15] VITALS: BP 103/67
[2023-08-11 03:56] VITALS: BP 118/78
--- NOTE | 2023-08-11 04:04 | NUR ---
SHIFT SUMMERY, PT RESTING MOST OF THE NIGHT, PT USING URIAL TO VOID IN. PT SEEMS MORE ORIENTED EVERY DAY AND WAS DING EXERCISES IN BED TO HELP STRENGTHEN HIS LEGS SO HE CAN WALK BETTER. CALL LIGHT IN REACH BED ALARM ON.
[2023-08-11 07:52] VITALS: BP 117/78
[2023-08-11 17:16] VITALS: BP 115/76
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
[2023-08-11 21:06] VITALS: BP 107/74
[2023-08-12 02:56] VITALS: BP 106/72
--- NOTE | 2023-08-12 04:25 | NUR ---
SHIFT SUMMARY; NO ACUTE CHANGES. THE PT IS AXO X3, CONFUSED AT TIMES AND IS A STANDBY ASSIST W/ A FWW. THE PT HAS BEEN CONTINENT T/O THE NIGHT AND HAS DONE WELL USING HIS CALL LIGHT TO REQUEST ASSISTANCE GOING TO THE BATHROOM. THE PT HAS A TREMOR THAT IS NOTICABLE WHEN HE STICKS HIS HANDS OUT. THE PT HAS DENIED ANY SOB, CHEST PAIN/PRESSURE, PAIN OR N/V THIS SHIFT. CURRENTLY THE PT IS SLEEPING IN BED WITH THE BED IN THE LOWEST POSITION AND THE CALL LIGHT AT BEDSIDE. FIRE SAFETY MAINTAINED T/O THE NIGHT.
[2023-08-12 07:10] VITALS: BP 99/77
[2023-08-12 15:59] VITALS: BP 103/73
--- NOTE | 2023-08-12 16:28 | NUR ---
NOTE PT AWAKE AN ALERT. THERAPIES RELATED BYRON PT IS MUCH CLEARIER COGNATIVELY TODAY THAN PRIOR. HE HAS BEEN COOPERATIVE WITH CARE. FOLLOWS SAFETY CUES. UP WITH 1 ASSIST AND GAIT BELT. DENIED DISCOMFORT TODAY. UP IN RECLINER AT BEDSIDE FOR THE AFTERNOON. VIDEO ATTENDENT AT BEDSIDE. BED ALARM HAS BEEN SUFFICIENT FOR SAFETY. BED LOW, LOCKED WITH CALL LIGHT AND CELL PHONE WITH INREACH. CONTINUE POC.
[2023-08-12 19:21] VITALS: BP 110/75
[2023-08-13 02:33] VITALS: BP 113/75
--- NOTE | 2023-08-13 04:39 | NUR ---
SHIFT SUMMARY; NO ACUTE CHANGES OVERNIGHT. THE PT IS AXO X3 AND A 1 ASSIST TO USE THE URINAL AT BEDSIDE. THE PT HAS BEEN SLEEPING IN BED FOR THE MAJORITY OF THE NIGHT. THE PT HAS DENIED ANY SOB, PAIN, N/V OR CHEST PAIN/PRESSURE T/O THE NIGHT. CURRENTLY THE PT IS SLEEPING IN BED WITH THE BED IN THE LOWEST POSITION AND THE CALL LIGHT AT BEDSIDE. FIRE SAFETY MAINTAINED T/O THE NIGHT.
[2023-08-13 07:26] VITALS: BP 103/73
--- NOTE | 2023-08-13 09:03 | NUR ---
MAGNESIUM LEVEL SPOKE WITH DR RG IN PERSON. ORDER RECEIVED. CONTINUE POC.
--- NOTE | 2023-08-13 10:42 | NUR ---
[facility] pet inquiary Pt requested that htis nurse call [facility]ait[facility] to enquire about his dog Pistol. Multiple attempts. No answer at [facility]. Will continue to try. COntinue POC.
[2023-08-13 15:39] VITALS: BP 85/68
--- NOTE | 2023-08-13 17:04 | NUR ---
NOTE PT ALERT. SITTING UP IN RECLINER MOST TOF THE AFTERNOON. HE HAS TRIED TO GET UP UN ASSISTED MULTIPLE TIMES. WALKING WITH FWW. VOIDING PER TOILET. EATING WELL. UNSUCCESSFUL AT REACHING ANYONE AT [facility] ABOUT PT DOG. HAVE TRIED 11 TIMES. DENIED PAIN OR DISCOMFORT TODAY. NO NAPPING. BED LOW LOCKED, CALL LIGHT IN HIS LAP. SLIPPY SOCKS ON. CONTINUE POC.
[2023-08-13 19:04] VITALS: BP 97/76
--- NOTE | 2023-08-14 04:17 | NUR ---
SHIFT SUMMARY; NO ACUTE CHANGES OVERNIGHT. THE PT IS AXO X3 AND A 1 ASSIST TO THE BATHROOM. THE PT REQUESTED TO GET UP AND WALK THE [place] ONCE AND DID WELL W/ A 1 ASSIST, GAIT AND FWW. THE PT HAS BEEN SLEEPING IN BED FOR THE MAJORITY OF THE NIGHT. THE PT DENIES ANY SOB, CHEST PAIN/PRESSURE, N/V OR PAIN. CURRENTLY THE PT IS SLEEPING IN BED WITH THE BED IN THE LOWEST POSITION AND THE CALL LIGHT AT BEDSIDE. FIRE SAFETY MAINTAINED T/O THE NIGHT.
[2023-08-14 04:28] VITALS: BP 96/69
[2023-08-14 07:20] VITALS: BP 103/62
[2023-08-14 15:08] VITALS: BP 94/68
--- NOTE | 2023-08-14 18:24 | NUR ---
SHIFT SUMMARY: MARCIAL IS A 63 YEAR OLD MALE HERE FOR ALCOHOL WITHDRAWAL. HE IS A&O X 3. HE HAS BEEN PLEASANT AND COOPERATIVE WITH STAFF. HE IS A ONE BY ASSIST AND USES THE CALL LIGHT APPROPRIATELY. AVASURE AND BED/CHAIR ALARM ARE BEING UTILIZED IN THE ROOM. NO SIGNS OR SYMPTOMS OF ALCOHOL, BESIDES SOME OCCASSIONAL ANXIETY AT THE BEGINNING OF THE DAY, BUT THAT SEEMED TO SUBSIDE ONCE PT/OT CAME AND WORKED WITH HIM AND HE GOT TO MOVE AROUND. PT'S STATUS PRIOR TO HOSPITALIZATION WAS ADAPT/HOMELESS. UNSURE OF DISCHARGE PLAN/PLACEMENT. PT IS IN HIS BEDSIDE CHAIR EATING DINNER, CALL LIGHT WITHIN REACH, NO SIGNS OF SYMPTOMS OF DISTRESS.
[2023-08-14 19:28] VITALS: BP 98/70
[2023-08-15 04:20] VITALS: BP 111/75
--- NOTE | 2023-08-15 05:22 | NUR ---
SHIFT SUMMARY - NO ACUTE CHANGES THROUGHOUT THIS SHIFT. PT'S ONLY COMPLAINT IS LACK OF SLEEP. HAS ESSENTIAL TREMORS TO BILATERAL HANDS. PT IS ON A LIBRIUM TAPER DOSE - SEE EMAR. NO IV ORDER THIS AM - IV DC'D BY AIR QUALITY TECHNICIAN - SEE CHART. CALL LIGHT WITHIN REACH. AVASURE CAMERA IN PLACE. BED ALARM ON PT IS IMPULSIVE. WILL CONTINUE TO MONITOR UNTIL AM SHIFT CHANGE. FLUIDS AT BEDSIDE. BED IN LOW POSITION.
[2023-08-15 07:20] VITALS: BP 95/64
[2023-08-15 14:53] VITALS: BP 96/72
--- NOTE | 2023-08-15 17:03 | NUR ---
SHIFT SUMMARY: MARCIAL IS A 63 YEAR OLD MALE HERE SINCE 07/25/23 FOR ETOH WITHDRAWAL. HE IS A&O X3: SELF, PLACE, AND SITUATION. HE IS OVERALL PLEASANT AND COOPERATIVE WITH STAFF, BUT SHARES DISSATISFACTION WITH STAFF BEING INCONSISTANT WITH COMMUNICATION AND INFORMATION. EACH TIME PATIENT SHARES THIS, I ENCOURAGE HIM OF WHAT HAS BEEN DISCUSSED WITH HIM AND THE CARE TEAM TO ASSURE HIM OF THE PLAN. WHICH IS TO SORT OUT HIS MEDICAID/MEDICARE PLAN/COVERAGE ABOUT MATCHING HIM ON PRICING FOR CARE FACILITY PLACEMENT. PT CONFIRMS UNDERSTANDING. HIS DOG IS AT THE [facility] [employer] [employer]. IT IS VERY IMPORTANT TO HIM THAT HIS DOG IS ABLE TO LIVE WITH HIM. IF NOT HE SAID THAT HE WILL JUST GO [place]. HE IS A ONE BY ASSIST WITH A WALKER AND USES HIS CALL LIGHT APPROPRIATELY. AVASURE BEING UTILIZED IN ROOM. NO SIGNS OR SYMPTOMS OF ETOH WITHDRAWAL OR DISTRESS. HE HAS AN ESSENTIAL TREMOR IN HANDS, BUT PT STATES THAT HE HAS ALSO HAD THAT.
[2023-08-15 19:40] VITALS: BP 106/70
[2023-08-16 03:41] VITALS: BP 109/73
--- NOTE | 2023-08-16 06:13 | NUR ---
SHIFT SUMMARY NO EVENTS OVERNIGHT. FIRE SAFETY REVIEWED, NO IGNITION SOURCES
[2023-08-16 07:13] VITALS: BP 116/73
--- NOTE | 2023-08-16 08:52 | NUR ---
ASSUMED CARE OF PT. WHEN GREETING HIM THIS MORNING, HE EXPRESSED FEELING DEPRESSED AND STATED "IF I HAD A PISTOL I WOULD SHOOT MYSELF." ASSESSED FOR SUICIDE RISK. UTELIZED THERAPEUTIC COMMUNICATION AND ACTIVE LISTENING. AT BEDSIDE TO TALK WITH PT. DISCUSSED PT'S SUICIDE RISK WITH DR RG.
[2023-08-16 15:07] VITALS: BP 112/80
--- NOTE | 2023-08-16 17:49 | NUR ---
SHIFT SUMMARY PT AMBULATED WITH A FWW AND NURSE ASSIST ON UNIT TODAY. PT EXPRESSES FEELINGS OF DEPRESSION AND FRUSTRATION SURROUNDING PLACEMENT IN ASSISTED LIVING. THERAPEUTIC COMMUNICATION AND ACTIVE LISTENING UTELIZED. PT VSS. NO ACUTE EVENTS OCCURED DURING SHIFT. PT LEFT IN A POSITION OF SAFETY AND COMFORT WITH BED LOCKED AND IN LOWEST POSITION, BED ALARM ENABLED, NONSKID SOCKS IN PLACE, CALL LIGHT WITHIN REACH, AND CONTINUOUS CAMERA MONITORING IN ROOM.
[2023-08-16 20:09] VITALS: BP 107/73
--- NOTE | 2023-08-17 05:14 | NUR ---
SHIFT SUMMARY NO EVENTS OVERNIGHT.
[2023-08-17 08:07] VITALS: BP 120/79
[2023-08-17 16:31] VITALS: BP 106/78
--- NOTE | 2023-08-17 17:26 | NUR ---
SHIFT SUMMARY PT AOX4, SBA. CAMERA DC'D THIS SHIFT. PT COOPERATIVE AND CALLS WELL, MAKES HIS NEEDS KNOWN. NO ACUTE CHANGES THIS SHIFT, PT HAD NO COMPLAINTS. CALL LIGHT WITHIN REACH, BED IN THE LOWEST POSITION. WILL REPORT TO ONCOMING NURSE.
[2023-08-17 20:25] VITALS: BP 118/73
--- NOTE | 2023-08-18 04:40 | NUR ---
SHIFT SUMMARY NO EVENTS OVERNIGHT. FIRE SAFETY REVIEWED, NO IGNITION SOURCES
[2023-08-18 05:17] VITALS: BP 116/74
[2023-08-18 08:04] VITALS: BP 117/76
[2023-08-18 15:04] VITALS: BP 100/65
--- NOTE | 2023-08-18 17:49 | NUR ---
SHIFT SUMMARY PT AOX4, SBA TO THE BATHROOM. HE C/O CASTILLO AND NAUSEA THIS AM, MEDICATED PER THE EMAR. NO COMPLAINTS SINCE. HE TOOK A SHOWER TODAY AND TOLERATED IT WELL. HE HAS BEEN MOSTLY RESTING IN BED, READING OR USING HIS LAPTOP. HE IS AWAITING PLACEMENT. CALL LIGHT WITHIN REACH, BED IN THE LOWEST POSITION. WILL REPORT TO ONCOMING NURSE.
--- NOTE | 2023-08-18 19:24 | NUR ---
RECEIVED REPORT FROM DAY SHIFT RN. PT IN BED ON COMPUTER. BED ALARM ON. CALL LT IN REACH.
--- NOTE | 2023-08-18 20:00 | NUR ---
PT LOOKING AT LAPTOP. NO NEEDS AT THIS TIME. BED ALARM ON. CALL LT IN REACH.
[2023-08-18 20:46] VITALS: BP 101/72
--- NOTE | 2023-08-18 23:01 | NUR ---
PT RESTING. BED ALARM ON. CALL LT IN REACH.
--- NOTE | 2023-08-18 23:53 | NUR ---
PT RESTING QUIETLY. BED ALARM ON. CALL LT IN REACH.
--- NOTE | 2023-08-19 02:21 | NUR ---
PT RESTING QUIETLY. CALL LT IN REACH. BED ALARM ON.
[2023-08-19 03:32] VITALS: BP 91/65
--- NOTE | 2023-08-19 04:23 | NUR ---
PT RESTING QUIETLY. BED ALARM ON. CALL LT IN REACH.
--- NOTE | 2023-08-19 06:26 | NUR ---
SHIFT SUMMARY: PT COOPERATIVE CARE. NO COMPLAINTS OF PAIN OR NAUSEA. AMBULATES TO THE BR WITH FWW AND SBA WITHOUT DIFFICULTY. ABLE TO STATE NEEDS. SPENDS TIME ON HIS LAPTOP AND WATCHING TV. TAKES MEDS WHOLE WITH WATER WITHOUT DIFFICULTY. CIWA ZERO. NO ACUTE CHANGES. WILL CONTINUE TO PROVIDE CARE UNTIL SHIFT REPORT TO ONCOMING NURSE.
[2023-08-19 07:14] VITALS: BP 102/66
[2023-08-19 15:07] VITALS: BP 107/72
--- NOTE | 2023-08-19 17:09 | NUR ---
SHIFT SUMMARY PT AOX4, I ASSIST WITH THE FWW AND GB. NO COMPLAINTS TODAY OTHER THAN NAUSEA THIS AM, MEDICATED PER THE EMAR. AWAITING HOUSING FOR THE PT. HE HAS BEEN ON THE PHONE MOST OF THE DAY. NO ACUTE CHANGES. CALL LIGHT WITHIN REACH, BED IN THE LOWEST POSITION. WILL REPORT TO ONCOMING NURSE.
[2023-08-19 20:10] VITALS: BP 98/69
--- NOTE | 2023-08-19 23:20 | NUR ---
PT ALERT W DELAYED MENTAL STATUS R/T ETOH ABUSE ESSENTIAL TREMORS W UNSTEADY GAIT FORGETS LIMITATIONS BED ALARM ON. PT LUNGS ARE CLEAR BILATERALLY, BOWEL SOUNDS ACTIVE LAST BM THIS MORNING DENIES PAIN OR DISCOMFORT. PT REPORTS HOMELESSNESS CM/SW AWARE. HOB ELEVATED CALL HAGER WITHIN REACH BED LOWERED. PT USING LAPTOP TO WATCH MOVIES. WILL CONTINUE TO MONITOR.
[2023-08-20 04:06] VITALS: BP 96/64
[2023-08-20 07:50] VITALS: BP 113/74
[2023-08-20 15:41] VITALS: BP 91/68
--- NOTE | 2023-08-20 18:20 | NUR ---
SHIFT SUMMARY: PT A&O X3-4. PLEASANT AND COOPERATIVE WITH CARE. NO ACUTE CHANGES THIS SHIFT. PT ABLE TO MAKE NEEDS KNOWN. STAND BY ASSIST TO BATHROOM. PT MAINLY CALLS FOR COFFEE AND BATHROOM NEEDS. CALL LIGHT IN REACH. BED IN LOWEST POSITION. WILL CONTINUE TO MONITOR.
[2023-08-20 19:34] VITALS: BP 100/62
[2023-08-21 04:51] VITALS: BP 99/65
--- NOTE | 2023-08-21 05:52 | NUR ---
SHIFT SUMMARY PATIENT A/Ox3-4, PLEASANT AFFECT. DENIES PAIN NOR DISCOMFORT. FORGETFUL AT TIMES, EASY TO RE-ORIENT, NOTED Hx OF SUN-DOWNING. NO ACUTE CONFUSION OBSERVED THIS SHIFT. CALM, COOPERATIVE. NO REPORTS OF NIGHTMARES, NO VERBAL OUTBURSTS THROUGHOUT THE NIGHT. BED ALARM ON FOR PATIENT SAFETY. BED IN LOWEST POSITION, CALL LIGHT WITHIN REACH.
[2023-08-21 07:42] VITALS: BP 116/77
[2023-08-21 16:23] VITALS: BP 114/80
--- NOTE | 2023-08-21 17:18 | NUR ---
DAYSHIFT SUMMARY Patient alert & oriented x2, no acute changes to patient status. Worked with therapu today & walked hallways. Vitals stable. Awaiting discharge planning.
[2023-08-21 19:23] VITALS: BP 113/76
--- NOTE | 2023-08-22 04:03 | NUR ---
SHIFT SUMMARY PATIENT A/Ox3, APPEARS CALM, QUIET, WITHDRAWN. VSS, SPO2 100% ON RA. DENIES PAIN NOR DISCOMFORT. NO ACUTE CONFUSION OBSERVED THIS SHIFT. COOPERATIVE WITH ALL CARES. USES CALL LIGHT APPROPRIATELY. BED ALARM ON FOR PATIENT SAFETY. BED LOCKED AND IN LOWEST POSITION, CALL LIGHT WITHIN REACH.
[2023-08-22 05:20] VITALS: BP 109/72
[2023-08-22 07:23] VITALS: BP 126/85
[2023-08-22 16:16] VITALS: BP 128/109
--- NOTE | 2023-08-22 17:36 | NUR ---
SHIFT SUMMARY: PT A&O X3-4 THIS SHIFT. NO ACUTE CHANGES WITH PT. PLAN FOR PT TO D/C TO [facility] IN [place] W/DOG AND [facility]SPORT. PT SLIGHTLY ANXIOUS THIS AFTERNOON SEARCHING FOR [facility] TO STORAGE UNIT. SB ASSIST W/ FWW DURING TRANSFERS. CALL LIGHT IN REACH. BED IN LOWEST POSITION. WILL CONTINUE TO MONITOR.
[2023-08-22 19:36] VITALS: BP 109/67
--- NOTE | 2023-08-23 04:25 | NUR ---
SHIFT SUMMARY PATIENT A/OX3, FLAT AFFECT, APPEARS WITHDRAWN TO SELF IN ROOM. DENIES PAIN NOR DISCOMFORT. COOPERATIVE WITH CARES. USES CALL LIGHT APPROPRIATELY. MOSTLY INDEPENDENT IN ROOM. BED LOCKED AND IN LOWEST POSITION, CALL LIGHT WITHIN REACH.
[2023-08-23 05:29] VITALS: BP 111/70
[2023-08-23 07:41] VITALS: BP 140/86
[2023-08-23] MEDS ORDERED: ACET325 PO (09:20)
[2023-08-23] MEDS ORDERED: CHLO10 PO (09:21)
[2023-08-23] MEDS ORDERED: LORA10ER PO (09:22)
[2023-08-23] MEDS ORDERED: Prozac20 MG PO (09:22)
[2023-08-23] MEDS ORDERED: B-1100 M1 PO (09:23)
[2023-08-23] MEDS ORDERED: MELA3 PO (09:23)
--- NOTE | 2023-08-23 10:39 | NUR ---
DISCHARGE: PT D/C @1020 VIA [facility] BACK TO [place]. MARKET RESEARCH COORDINATOR WILL INJECTION MOLDING OPERATOR DOG AND DRIVE PT AND DOG BACK TO [place]. MEDICATIONS FAXED TO [facility] IN [place]. NO IV ACCESS AT TIME OF D/C. ALL BELONGINGS SENT WITH PT. HARD SCRIPT FOR X1 LIBRIUM IN DISCHARGE PACKET. PT RECEIVED 2100 DOSE LIBRIUM PRIOR TO D/C INSTRUCTED TO TAKE LAST ONE 72 HOURS FROM NOW.
== END 2023-08-23 10:21 | disposition home or self-care (01) | DRG 897 ==
LOC: ER 10:21 → ICUE 10:22 → MEDS 07-25 14:50 → ICUE 07-25 14:50 → MEDS 07-27 17:25 → ENPENDDIS 08-23 08:15 → MEDS 08-23 10:21
PROVIDERS: Emergency Medicine; Family Medicine; Internal Medicine; Student in an Organized Health Care Education/Training Program; ADMIT Internal Medicine
PROC: HZ2ZZZZ Detoxification Services for Substance Abuse Treatment (ICD-10-PCS; principal; 2023-07-24)
DX: F10.231 Alcohol dependence with withdrawal delirium (principal); E51.2 Wernicke's encephalopathy; Z20.822 Contact with and (suspected) exposure to COVID-19; F10.251 Alcohol dependence with alcohol-induced psychotic disorder with hallucinations; D64.9 Anemia, unspecified; R94.5 Abnormal results of liver function studies; I10 Essential (primary) hypertension; R29.810 Facial weakness; I95.9 Hypotension, unspecified; F43.12 Post-traumatic stress disorder, chronic; F51.5 Nightmare disorder
CPT/HCPCS: 36415; 70450; 80053; 83735; 85014; 85018; 85025; 85027; 92507; 92523; 92526; 92610; 93005; 93010; 96361; 96365; 96366; 96368; 96372; 96375; 96376; 97110; 97112; 97116; 97161; 97166; 97530; 97535; 99285-25; A9270; G0378; J0360; J1650; J2060; J3411; J7030; J7040; U0002